=== PATIENT | male | born 1960 | race Caucasian/White ===

== ENCOUNTER 2017-09-24 19:54 | Inpatient (IN) | payer OTHER ==
[~2017-09-24] VITALS: Ht 182.9 cm; Wt 103.0 kg
[2017-09-24 20:52] LABS: HEMATOCRIT 33.1 % (38.0-50.0); HEMOGLOBIN 11.9 G/DL (12.5-16.6); MCH 31.2 PG (29.0-34.0); MCV 86.6 FL (86-99); PLATELET COUNT 382 K/uL (156-360); RBC DIS.WIDTH-CV 12.6 % (11.8-14.6); RBC DIS.WIDTH-SD 39.4 % (39-53); RED BLOOD COUNT 3.82 M/uL (4.00-5.50); WHITE BLOOD COUNT 6.7 K/uL (4.1-10.2)
[2017-09-24 20:54] LABS: D-DIMER ELISA < 150.00 ng/mLDDU (<230)
[2017-09-24 20:55] LABS: ALBUMIN 3.8 g/dL (3.2-4.8); CHLORIDE 103 mEq/L (99-109); POTASSIUM 4.3 mEq/L (3.7-5.4); SODIUM 138 mEq/L (136-147)
[2017-09-24 20:57] LABS: GLUCOSE 149 mg/dL (70-99)
[2017-09-24 20:59] LABS: TOTAL BILIRUBIN 0.2 mg/dL (0.0-1.0)
[2017-09-24 21:01] LABS: ALKALINE PHOSPHATASE 153 IU/L (3-129); CREATININE 1.3 mg/dL (0.6-1.3); GFR ESTIMATE (CALCULATED) > 59 mL/min/ (58.99-99999)
[2017-09-24 21:02] LABS: UREA NITROGEN (BUN) 16 mg/dL (9-23)
[2017-09-24 21:03] LABS: AST (GOT) 24 IU/L (2-34)
[2017-09-24 21:04] LABS: ALT (GPT) 39 IU/L (3-49); TROP-I INTERPRETATION NEGATIVE; TROPONIN-I 0.02 ng/mL (0.0-0.30)
[2017-09-24] MEDS ORDERED: DESYREL100 MG PO (21:40)
[2017-09-24] MEDS ORDERED: NORVASC10 MG PO (21:40)
[2017-09-24] MEDS ORDERED: LEVOTHYROXINE50 MCG PO (21:41)
[2017-09-24] MEDS ORDERED: LIPITOR80 MG PO (21:42)
[2017-09-24] MEDS ORDERED: HYGROTON50 MG PO (21:42)
[2017-09-24] MEDS ORDERED: PAXIL30 MG PO (21:42)
[2017-09-24] MEDS ORDERED: ZYBAN 150 MG T150 MG PO (21:42)
[2017-09-24] MEDS ORDERED: DEPAKOTE500 MG PO (21:43)
[2017-09-24] MEDS ORDERED: VITAMIN D31000 UNI2 PO (21:44)
[2017-09-24] MEDS ORDERED: PLAVIX75 MG PO (21:44)
[2017-09-24] MEDS ORDERED: VIAGRA50 MG PO (21:44)
[2017-09-24] MEDS ORDERED: TOPROL XL100 MG PO (21:45)
[2017-09-24] MEDS ORDERED: COZAAR100 MG PO (21:45)
[2017-09-24] MEDS ORDERED: XARELTO20 MG PO (21:51)
[2017-09-24 23:09] VITALS: BP 140/99
[2017-09-24 23:11] LABS: TROP-I INTERPRETATION NEGATIVE; TROPONIN-I < 0.01 ng/mL (0.0-0.30)
[2017-09-25 02:34] LABS: TROP-I INTERPRETATION NEGATIVE; TROPONIN-I < 0.01 ng/mL (0.0-0.30)
[2017-09-25 04:18] VITALS: BP 120/59
[2017-09-25 08:12] VITALS: BP 131/73
[2017-09-25 09:27] LABS: TROP-I INTERPRETATION NEGATIVE; TROPONIN-I < 0.01 ng/mL (0.0-0.30)
[2017-09-25 11:18] VITALS: BP 135/75
[2017-09-25 15:02] VITALS: BP 118/55
[2017-09-25 20:00] VITALS: BP 130/74
[2017-09-26] VITALS (8 sets, daily range): BP systolic 95–169; BP diastolic 54–89
[2017-09-26 07:43] LABS: HEMATOCRIT 31.6 % (38.0-50.0); MCH 30.2 PG (29.0-34.0); MCHC 34.8 G/DL (30.0-36.0); MCV 86.8 FL (86-99); PLATELET COUNT 326 K/uL (156-360); RBC DIS.WIDTH-CV 12.5 % (11.8-14.6); RBC DIS.WIDTH-SD 39.3 % (39-53); RED BLOOD COUNT 3.64 M/uL (4.00-5.50); WHITE BLOOD COUNT 5.6 K/uL (4.1-10.2)
[2017-09-26 07:58] LABS: INTER. NORMALIZED RATIO 1.2
[2017-09-26 08:01] LABS: PTT 29.3 SEC (25-37)
[2017-09-26 08:06] LABS: CHLORIDE 107 MEQ/L (99-109); GFR ESTIMATE (CALCULATED) > 59 mL/min/ (58.99-99999); GLUCOSE 140 mg/dL (70-99); SODIUM 140 MEQ/L (136-147); UREA NITROGEN (BUN) 14 mg/dL (9-23)
[2017-09-27 04:46] VITALS: BP 119/65
[2017-09-27 07:51] VITALS: BP 120/64
== END 2017-09-27 11:49 | disposition home or self-care (01) | DRG 246 ==
LOC: EME → EDBD 20:01 → EDOF 21:48 → 4SOUTH 21:48 → ENRESERV 21:51 → 4SOUTH 22:59 → ENRESERV 09-26 16:08 → 4EAST 09-26 17:46 → ENPENDDIS 09-27 → 4EAST 09-27 09:58
PROVIDERS: Emergency Medicine Emergency Medical Services; Family Medicine; Hospitalist; Internal Medicine Cardiovascular Disease; Physician Assistant
DX: I25.110 Atherosclerotic heart disease of native coronary artery with unstable angina pectoris (principal); I10 Essential (primary) hypertension; I44.0 Atrioventricular block, first degree; E11.40 Type 2 diabetes mellitus with diabetic neuropathy, unspecified; E11.00 Type 2 diabetes mellitus with hyperosmolarity without nonketotic hyperglycemic-hyperosmolar coma (NKHHC); E03.9 Hypothyroidism, unspecified; E78.5 Hyperlipidemia, unspecified; I25.2 Old myocardial infarction; I69.354 Hemiplegia and hemiparesis following cerebral infarction affecting left non-dominant side; I69.311 Memory deficit following cerebral infarction; Z79.01 Long term (current) use of anticoagulants; Z86.718 Personal history of other venous thrombosis and embolism
CPT/HCPCS: 70450; 71045; 80048; 80053; 82948; 83880; 84484; 85027; 85347; 85379; 85610; 85730; 93005; 99281; 99284; C1725; C1769; C1874; C1887; G0378; J0153; J1644; J1815; J2250; J3010; J3246; J7030